=== PATIENT | male | born 1940 | race Caucasian/White ===

== ENCOUNTER 2019-02-28 08:16 | Day surgery (SDC) | payer MEDICARE ==
[2019-02-27 12:02] LABS: BASOPHILS # (AUTO) 0.1 (0.0-0.1); BASOPHILS % 0.7 % (0.0-1.0); EOSINOPHILS # (AUTO) 0.3 (0.0-0.4); EOSINOPHILS % 3.5 % (0.0-6.0); HEMATOCRIT 43.4 % (38.2-49.6); HEMOGLOBIN 14.3 g/dL (14.0-18.0); LYMPHOCYTES % 26.7 % (18.0-39.1); MEAN CORPUSCULAR HEMOGLOBIN 31.8 pg (28-32); MEAN CORPUSCULAR HGB CONC 32.9 g/dL (31-35); MEAN CORPUSCULAR VOLUME 96.7 fL (81-99); MONOCYTES # (AUTO) 0.7 (0.2-0.8); MONOCYTES % 9.5 % (4.4-11.3); NEUTROPHILS # (AUTO) 4.5 (2.1-6.9); NEUTROPHILS % 59.3 % (38.7-80.0); PLATELET COUNT 287 x10e3/uL (140-360); RED BLOOD COUNT 4.49 x10e6/uL (4.3-5.7); RED CELL DISTRIBUTION WIDTH 12.8 % (11.7-14.4)
[2019-02-27 12:11] LABS: INR 0.92; PROTHROMBIN TIME 12.9 seconds (11.9-14.5)
[2019-02-27 12:19] LABS: ALBUMIN 3.6 g/dL (3.5-5.0); ANION GAP 12.3 mmol/L (8-16); CALCIUM 9.2 mg/dL (8.4-10.2); CREATININE, SERUM 1.31 mg/dL (0.72-1.25); POTASSIUM 4.3 mmol/L (3.5-5.1)
--- NOTE | 2019-02-27 14:25 | NUR ---
Dr. Delma Almonte notified of creatinine 1.31 and eGFR 53. No new orders at this time.
[~2019-02-28] VITALS: Ht 198.1 cm; Wt 122.5 kg
[~2019-02-28 08:16] MED LIST: CRESTOR10 MG PO; PANTOPRAZOLE SO20 MG PO; PROTONIX20 MG PO; XARELTO20 MG PO
[2019-02-28 08:58] VITALS: BP 159/88
[2019-02-28] MEDS ORDERED: LIDOCAINE HCL 2% LOCAL 20 ML VIAL ONE ×2 (10:32→15:32)
[2019-02-28] MEDS ORDERED: HEPARIN SOD/SOD CHLORIDE 2,000 ML ONE (10:32)
[2019-02-28] MEDS ORDERED: IOPAMIDOL 300MG/ML 50ML INFUS..BTL IV ONE (10:33)
[2019-02-28] MEDS ORDERED: MIDAZOLAM HCL 2 MG/2 ML VIAL ONE ×2 (14:13→15:31)
[2019-02-28] MEDS ORDERED: FENTANYL CITRATE/PF 100MCG/2 ML INJ ONE (14:13)
[2019-02-28] MEDS ORDERED: SODIUM CHLORIDE 0.9% 1000ML 1,000 ML ONE (14:14)
[2019-02-28] MEDS ORDERED: NITROGLYCERIN/D5W 200 MCG/ML 250 ML ONE (14:49)
[2019-02-28] MEDS ORDERED: HEPARIN SOD (PORCINE) 1000 UNIT/ML 30ML ONE (14:49)
[2019-02-28] MEDS ORDERED: IOPAMIDOL 300MG/ML 100 ML INFUS..BTL IV ONE (15:32)
[2019-02-28 16:36] VITALS: BP 138/88
--- NOTE | 2019-02-28 16:36 | NUR ---
1636pm Received in room #10,bedside report received from Alfonso RAMIREZ. Alert oriented and appropriate, PERRLA, respirations even and unlabored to room air. Pulses x4 Doppler. Pedal pulses PT/DP x4 and marked. Cap fill brisk < 3 sec. + neurovascular function at this time. Skin warm and dry integrity appears D/I IV 20g to left hand at 100cchr presents healthy w/o s/s of infiltration or complaint. Abdomen soft and supple. pt offered toileting, denies need to urinate or defecate. No personal affects with patient. Family Marielos at bedside. Pt and family verbalizes understanding of POC. Bilateral Mynx sites intact w/o s/s hematoma No gross issues pain pallor pressure or dysrhythmia. Down time till 9pm Tele in place Dr Almonte ok'd pt to transfer to tele bed till dc if any issues occur hold transfer an will alton pt in am.Both Mynx disclosure cards given to family. Snack tray given to pt. Ok to resume home meds till dc call Dr Almonte with any issues. Family and nursing staff reviewed use of Waffle air mattress and that it is pt item to be taken home if wanted. Currently w/o complaint of pain or need. Pt aware needs to use urinal and keep hob down and Trendelenburg position no greater 30 degree ok. 1645 Tele box applied remains in Sr NO ectopy transfer to floor care and handoff to Beatriz RAMIREZ rm 177 with Rn escort.[email or web address]
[2019-02-28 16:45] VITALS: BP 133/76
[2019-02-28 17:00] VITALS: BP 132/88
--- NOTE | 2019-02-28 17:00 | NUR ---
[address] [place] nae Kimball Rn and Sasha Rn aware that pt is on bedrest with tele till dc tonight. Full admission status to be changed if issues occur prior to dc and family aware of importance and to f/o in 2wks Dr Gage segovia/rn
--- NOTE | 2019-02-28 17:20 | NUR ---
Pt arrived on unit via stretcher with 2 person assist. A&O x3, resp WNL. at bedside. IV patent, no swelling or redness to insertion site. Assisted pt to bed. Insertion sites to BLE soft to touch, dressing CDI. No c/o pain to sites. Pedal pulses palpated to BLE. Pt is to keep on bed rest till 2100. Observation of sites for oozing and hardening. Pt aware of care. Bed in lowest position, call light within reach.
--- NOTE | 2019-02-28 19:15 | NUR ---
Walking rounds. Patient alert and oriented. Patient bilateral cath sites assessed. Pedal pulses present bilaterally. No signs of bleeding, sites are soft, no signs of hematoma. Patient denies pain. Patient call vallejo within reach. Patient instructed to call for assistance. Patient verbalized understanding
[2019-02-28 20:00] VITALS: BP 153/71
--- NOTE | 2019-02-28 20:45 | NUR ---
Per Dr. Zapata patient may resume Xarelto tomorrow.
--- NOTE | 2019-02-28 21:30 | NUR ---
Patient discharged. Vital signs stable, groin cath sites soft, no bleeding or hematoma. IV removed and discharge instructions given. Patient verbalized understanding of discharge instructions.
--- NOTE | 2019-03-07 19:03 | Operative Report ---
DATE OF PROCEDURE: SURGEON: Jerson Almonte DO PROCEDURES PERFORMED: 1. Conscious sedation, 60 minutes. 2. Abdominal aortography. 3. Third-order peripheral angiography, left lower extremity. 4. Percutaneous transluminal angioplasty of the anterior tibial. 5. Percutaneous transluminal angioplasty of the peroneal artery. PREPROCEDURE DIAGNOSIS: Peripheral arterial disease. POSTPROCEDURE DIAGNOSIS: Peripheral arterial disease. ESTIMATED BLOOD LOSS: Less than 20 mL. SPECIMENS REMOVED: None. PROCEDURE IN DETAIL: After informed consent was obtained, the patient was brought to the cardiac catheterization laboratory in a fasting and nonsedated state. Bilateral groins were prepped and draped in the usual sterile fashion. A 2% lidocaine was infiltrated over the right anterior groin for local anesthesia. Using micropuncture needle, the right common femoral artery was accessed via modified Seldinger technique and a 5-Spanish sheath was placed. Next, abdominal aortography was performed using Omni Flush catheter. Next, this was taken up and over to the third-order peripheral angiography position and diagnostic imaging revealed significant peripheral arterial disease. Next, I crossed the anterior tibial 70% stenosis and performed balloon angioplasty with a 2.5 mm balloon. Next, I crossed the peroneal vessel and performed balloon angioplasty with a 3 mm balloon. Diagnostic imaging confirmed excellent angioplasty results. The patient tolerated the procedure well with no immediate complications and transported to his room in stable condition. PROCEDURAL FINDINGS: The abdominal aorta, iliac, and femoral systems are patent. Popliteal vessel on the left lower extremity is patent. There is a proximal 70% left anterior tibial stenosis. There is a 70% stenosis of the left peroneal artery. This vessel provides collaterals to the distal posterior tibial. The entire length of the proximal to mid posterior tibial vessel is occluded. IMPRESSION: Peripheral arterial disease, status post percutaneous transluminal angioplasty of the left anterior tibial and peroneal arteries. RECOMMENDATIONS: Aggressive medical therapy for his arterial disease. Jerson Almonte DO BM/MODL /[id number]
== END 2019-02-28 21:30 | disposition home or self-care (01) ==
LOC: CATH LAB 08:16
PROVIDERS: ATTEND Internal Medicine Cardiovascular Disease
DX: I70.202 Unspecified atherosclerosis of native arteries of extremities, left leg (principal); I87.2 Venous insufficiency (chronic) (peripheral); R09.89 Other specified symptoms and signs involving the circulatory and respiratory systems; Z01.812 Encounter for preprocedural laboratory examination; Z79.02 Long term (current) use of antithrombotics/antiplatelets
CPT/HCPCS: 36415; 37228; 37232; 75625; 75710; 80053; 85025; 85610; C1725; C1760; C1766; C1769 ×2; C1887 ×2; J1644; J2001; J2250; J3010; J7030; Q9967; 36247; 99152; 99153